=== PATIENT | male | born 1990 | race Two or more races ===

== ENCOUNTER 2023-08-14 23:23 | Emergency (ER) | payer BC ==
[2023-08-15] MEDS: Ibuprofen 600 MG Tab PO ONE (00:54)
[2023-08-15] MEDS: Acetaminophen 500 MG Tab PO ONE (00:54)
== END 2023-08-15 00:57 | disposition home or self-care (01) ==
LOC: MW.ED 23:23
DX: S60.222A Contusion of left hand, initial encounter (principal); V86.95XA Unspecified occupant of 3- or 4- wheeled all-terrain vehicle (ATV) injured in nontraffic accident, initial encounter
CPT/HCPCS: 73130; 99284; A9270

== ENCOUNTER 2023-12-07 17:17 | Emergency (ER) | payer BC ==
[2023-12-07] MEDS ORDERED: Sodium Chloride 0.9% 2.5 ML Syringe FLUSH PRN (17:23)
[2023-12-07] MEDS ORDERED: Sodium Chloride 0.9% 10 ML Syringe FLUSH PRN (17:23)
[2023-12-07] MEDS: Sodium Chloride 0.9% 1,000 ML IV ONE ×3 (17:40→22:55)
[2023-12-07] MEDS: Ketorolac 30 MG/ML SDV IVPUSH ONE (17:41)
[2023-12-07] MEDS: diphenhydrAMINE 50 MG/ML SDV IVPUSH ONE (17:41)
[2023-12-07] MEDS: methylPREDNISolone Sodium Succinate 125 MG/2 ML SDV IVPUSH ONE (17:41)
[2023-12-07] MEDS: Acetaminophen 325 MG Tab PO ONE (17:42)
[2023-12-07 17:50] LABS: BASOPHILS ABSOLUTE AUTO 0.06 K/uL (0.00-0.20); BASOPHILS PERCENT AUTO 0.3 % (0.0-1.0); HEMATOCRIT 49.9 % (42.0-52.0); HEMOGLOBIN 16.9 g/dL (14.0-18.0); IMMATURE GRAN ABSOLUTE AUTO 0.11 K/uL (0.00-0.05); IMMATURE GRAN PERCENT AUTO 0.5 % (0.0-0.4); LYMPHOCYTES ABSOLUTE AUTO 1.33 K/uL (1.00-4.80); LYMPHOCYTES PERCENT AUTO 6.6 % (24.0-44.0); MEAN CORPUSCULAR HEMOGLOBIN 27.3 pg (28.0-32.0); MEAN CORPUSCULAR HGB CONC 33.9 g/dL (32.0-36.0); MEAN CORPUSCULAR VOLUME 80.5 fL (83.0-99.0); MEAN PLATELET VOLUME 9.1 fL (9.4-12.4); MONOCYTES ABSOLUTE AUTO 1.43 K/uL (0.00-0.80); NEUTROPHILS ABSOLUTE AUTO 17.37 K/uL (1.80-7.70); NEUTROPHILS PERCENT AUTO 85.6 % (41.0-71.0); PLATELET COUNT,PLT 346 K/uL (150-400)
[2023-12-07] MEDS: cefTRIAXone 1 GM in Sodium Chloride 0.9% 50 ML IV ONE (17:50)
[2023-12-07 18:17] LABS: A/G RATIO 0.9 (0.9-1.6); ALBUMIN 3.7 g/dL (3.4-5.0); BILIRUBIN TOTAL 0.9 mg/dL (0.2-1.0); CALCIUM 9.3 mg/dL (8.5-10.1); CARBON DIOXIDE,CO2 24.1 mmol/L (21.0-32.0); CREATININE 1.4 mg/dL (0.8-1.3); EST CRCL DRUG DOSING (CG) 82.37 mL/min; POTASSIUM,K 3.8 mmol/L (3.5-5.1)
[2023-12-07] MEDS: VANCOmycin 1.75 GM/350 ML 1.75 GM in Premix Bag 1 BAG IV ONE (18:34)
[2023-12-07 19:12] LABS: APPEARANCE,URINE CLEAR; COLOR,URINE YELLOW; GLUCOSE,URINE NEGATIVE (NEGATIVE); KETONES,URINE 40 mg/dL (NEGATIVE); LEUKOCYTE ESTERASE,URINE NEGATIVE (NEGATIVE); NITRITE,URINE NEGATIVE (NEGATIVE); OCCULT BLOOD,URINE SMALL (NEGATIVE); PROTEIN,URINE 100 mg/dL (NEGATIVE)
[2023-12-07 19:20] LABS: BACTERIA,URINE FEW (NEGATIVE); BILIRUBIN,URINE SMALL (NEGATIVE); EPITHELIAL CELLS,URINE NOT SEEN (NONE-FEW); MUCUS,URINE LIGHT (NONE-MOD); WBC,URINE 0-1 (0-5/HPF)
[2023-12-07] MEDS: Iopamidol 755 MG/ML 500 ML Multipack Bottle IVPUSH ONE (19:32)
[2023-12-07] MEDS: Labetalol 100 MG/20 ML MDV IVPUSH ONE (22:55)
== END 2023-12-07 21:03 | disposition left against medical advice (07) ==
LOC: MW.ED 17:17
DX: K13.0 Diseases of lips (principal); L03.221 Cellulitis of neck; E86.0 Dehydration; Z91.148 Patient's other noncompliance with medication regimen for other reason; I10 Essential (primary) hypertension; R53.1 Weakness; Z75.8 Other problems related to medical facilities and other health care
CPT/HCPCS: 36415; 70491; 80053; 81001; 83605; 85025; 87040; 93005; 96365; 96366; 96367; 96375; 99285; A9270; J0696; J1200; J1885; J2919; J3372; J3490; J7030; Q9967; 93010; 99284

== ENCOUNTER 2024-10-22 14:16 | Emergency (ER) | payer BC ==
[2024-10-22 15:55] LABS: APPEARANCE,URINE CLEAR; GLUCOSE,URINE NEGATIVE (NEGATIVE); OCCULT BLOOD,URINE NEGATIVE (NEGATIVE)
[2024-10-22 16:08] LABS: EPITHELIAL CELLS,URINE RARE (NONE-FEW)
== END 2024-10-22 16:32 | disposition home or self-care (01) ==
LOC: MW.ED 14:16
DX: Z02.89 Encounter for other administrative examinations (principal); Z76.0 Encounter for issue of repeat prescription; Z79.899 Other long term (current) drug therapy
CPT/HCPCS: 81001; 99283; A9270

== ENCOUNTER 2024-11-28 02:31 | Emergency (ER) | payer BC | END 2024-11-28 03:31 | LOC: MW.ED 02:31 | DX: Z02.89 Encounter for other administrative examinations (principal); R07.89 Other chest pain; Z75.3 Unavailability and inaccessibility of health-care facilities | CPT/HCPCS: 99283; 99284 ==